=== PATIENT | male | born 1960 | race Caucasian/White ===

== ENCOUNTER 2023-10-15 11:14 | Inpatient (IN) | payer MEDICARE ==
[~2023-10-15] VITALS: Ht 182.9 cm; Wt 118.8 kg
[2023-10-15 12:20] LABS: ALANINE AMINOTRANSFERASE 8 U/L (12-78); ALBUMIN 2.5 g/dL (3.4-5.0); ALKALINE PHOSPHATASE 110 U/L (46-116); ASPARTATE AMINOTRANSFERASE < 5 U/L (15-37); BASOPHILS % (AUTO) 0.4 % (0.0-2.0); BILIRUBIN,DIRECT 0.2 mg/dL (0.0-0.2); BILIRUBIN,TOTAL 0.5 mg/dL (0.2-1.0); CARBON DIOXIDE 28 mmol/L (21-32); CHLORIDE 107 mmol/L (98-107); CREATININE 0.7 mg/dL (0.6-1.3); EOSINOPHILS # (AUTO) 0.4 K/uL (0.0-0.7); GLUCOSE 89 mg/dL (74-106); HEMATOCRIT 37 % (39-51); HEMOGLOBIN 12.5 g/dL (13.5-17.5); LYMPHOCYTES # (AUTO) 1.7 K/uL (0.8-4.8); LYMPHOCYTES % (AUTO) 18.3 % (20.0-44.0); MEAN CORPUSCULAR HEMOGLOBIN 30 PG (26.0-33.0); MEAN CORPUSCULAR HGB CONC 34 g/dl (31.0-36.0); MEAN CORPUSCULAR VOLUME 91 fL (80-96); MONOCYTES # (AUTO) 0.9 K/uL (0.1-1.30); MONOCYTES % (AUTO) 10.2 % (2.0-12.0); NEUTROPHILS # (AUTO) 6.1 K/uL (1.8-8.9); NEUTROPHILS % (AUTO) 67.1 % (43.0-81.0); PLATELET COUNT (AUTO) 518 K/uL (150-450); POTASSIUM 3.5 mmol/L (3.5-5.1); RED BLOOD CELL COUNT(AUTO) 4.13 MIL/uL (4.5-6.0); RED CELL DISTRIBUTION WIDTH 15.5 % (11.5-15.0); SALICYLATE 4.3 mg/dL (2.8-20.0); SODIUM SERUM 141 mmol/L (136-145); TOTAL PROTEIN, SERUM 6.9 g/dL (6.4-8.2); UREA NITROGEN, BLOOD 21 mg/dL (7-18)
[2023-10-15 12:25] LABS: ACETAMINOPHEN <10 ug/ml (10-30); ALCOHOL, BLOOD < 3 mg/dL (0-10)
[2023-10-15 13:40] LABS: APPEARANCE,URINE CLEAR (CLEAR); BILIRUBIN,URINE 1+ (NEGATIVE); BLOOD, URINE NEGATIVE Ery/uL (NEGATIVE); COLOR,URINE DARK YELLOW (YELLOW); KETONES,URINE NEGATIVE (NEGATIVE); LEUKOCYTE ESTERASE ,URINE NEGATIVE (NEGATIVE); NITRITE, URINE NEGATIVE (NEGATIVE); PROTEIN,URINE TRACE mg/dl (NEGATIVE); UGLUCOSE NEGATIVE (NEGATIVE)
[2023-10-15 13:46] LABS: AMPHETAMINE, URINE NEGATIVE (NEGATIVE); BARBITURATE, URINE NEGATIVE (NEGATIVE); CANNABINOID, URINE NEGATIVE (NEGATIVE); COCCAINE, URINE NEGATIVE (NEGATIVE); OPIATE, URINE NEGATIVE (NEGATIVE); PHENCYCLIDINE SCREEN,URINE NEGATIVE (NEGATIVE)
[2023-10-15 13:49] LABS: BENZODIAZEPINE, URINE POSITIVE (NEGATIVE)
[2023-10-15 13:51] LABS: CALCIUM OXALATE CRYSTALS,UR Many /HPF (None Seen)
[2023-10-15 13:52] LABS: BACTERIA,URINE Few /HPF (None Seen)
[2023-10-15 14:02] LABS: ADD URINE CULTURE NO; RBC,URINE 0-2 /HPF (0-2)
[2023-10-15 14:03] LABS: SQUAMOUS EPITHELIAL CELL,UR None Seen /HPF (None Seen)
[2023-10-15] MEDS ORDERED: ONDANSETRON HCL/PF 4 MG/2 ML VIAL IVP PRN (15:00)
[2023-10-15] MEDS ORDERED: MAGNESIUM HYDROXIDE 30 ML UDC PO PRN (15:00)
[2023-10-15] MEDS ORDERED: Z GUARD REMEDY 4 OZ OINT TP PRN (15:00)
[2023-10-15] MEDS ORDERED: ACETAMINOPHEN 325 MG TABLET PO PRN (15:00)
[2023-10-15] MEDS ORDERED: ZOLPIDEM TARTRATE 5 MG TABLET PO PRN (15:00)
[2023-10-15] MEDS ORDERED: HYDROCODONE/APAP 5/325MG TABLET PO PRN (15:00)
[2023-10-15] MEDS ORDERED: MAG HYDROX/AL HYDROX/SIMETH 30 ML UDC PO PRN (15:00)
[2023-10-15] MEDS: LORAZEPAM 0.5 MG TABLET PO PRN (21:30)
[2023-10-15] MEDS: IV NS 0.9% 1,000 ML IV PRN (21:31)
[2023-10-15 22:53] VITALS: BP 117/76; TEMP 97.8; O2SAT 98
[2023-10-16 06:58] LABS: BASOPHILS % (AUTO) 0.5 % (0.0-2.0); EOSINOPHILS # (AUTO) 0.4 K/uL (0.0-0.7); EOSINOPHILS % (AUTO) 5.7 % (0.0-6.0); HEMATOCRIT 38 % (39-51); HEMOGLOBIN 12.4 g/dL (13.5-17.5); LYMPHOCYTES # (AUTO) 1.8 K/uL (0.8-4.8); LYMPHOCYTES % (AUTO) 24.1 % (20.0-44.0); MEAN CORPUSCULAR HEMOGLOBIN 30 PG (26.0-33.0); MEAN CORPUSCULAR HGB CONC 33 g/dl (31.0-36.0); MEAN CORPUSCULAR VOLUME 92 fL (80-96); MONOCYTES # (AUTO) 0.7 K/uL (0.1-1.30); MONOCYTES % (AUTO) 10.1 % (2.0-12.0); NEUTROPHILS # (AUTO) 4.4 K/uL (1.8-8.9); NEUTROPHILS % (AUTO) 59.6 % (43.0-81.0); PLATELET COUNT (AUTO) 499 K/uL (150-450); RED CELL DISTRIBUTION WIDTH 15.5 % (11.5-15.0); WHITE BLOOD COUNT (AUTO) 7.3 K/uL (4.3-11.0)
[2023-10-16 07:22] LABS: CALCIUM, SERUM 8.4 mg/dL (8.5-10.1); CREATININE 0.6 mg/dL (0.6-1.3); MAGNESIUM 1.9 mg/dL (1.8-2.4); PHOSPHORUS 3.3 mg/dL (2.5-4.9); POTASSIUM 4.2 mmol/L (3.5-5.1)
[2023-10-16] MEDS: PANTOPRAZOLE 40 MG TABLET.DR PO SCH (07:58)
[2023-10-16 08:00] VITALS: BP 149/88; TEMP 98.2; O2SAT 98
[2023-10-16 16:02] VITALS: BP 131/90; TEMP 98.6; O2SAT 97
[2023-10-16] MEDS: risperiDONE 1 MG TABLET PO SCH (16:52)
[2023-10-16 20:00] VITALS: BP 111/72; TEMP 97.9; O2SAT 97
[2023-10-16] MEDS: DIVALPROEX SODIUM 250 MG TABLET.DR PO SCH (21:08)
== END 2023-10-17 15:47 | DRG 948 ==
LOC: ER 11:17 → MED 19:13 → EDBD 19:13 → MED 10-17 12:46
PROVIDERS: ADMIT Nurse Practitioner Acute Care; ATTEND Nurse Practitioner Acute Care
DX: R41.0 Disorientation, unspecified (principal); E44.0 Moderate protein-calorie malnutrition; Z59.00 Homelessness unspecified; F20.9 Schizophrenia, unspecified; F41.9 Anxiety disorder, unspecified; Z68.35 Body mass index [BMI] 35.0-35.9, adult; D64.9 Anemia, unspecified
CPT/HCPCS: 36415; 70450-TC; 80048-TC; 80076-TC; 80164-TC; 81001; 83735-TC; 84100-TC; 85025-TC; 87081-TC; A4223; G0378; G0480; J7030

== ENCOUNTER 2023-10-17 16:20 | Inpatient (IN) | payer MEDICARE ==
[~2023-10-17] VITALS: Ht 182.9 cm; Wt 114.8 kg
[2023-10-17 16:44] VITALS: BP 121/97; TEMP 98; O2SAT 100
[2023-10-17] MEDS ORDERED: ACETAMINOPHEN 325 MG TABLET PO PRN (17:00)
[2023-10-17] MEDS ORDERED: MAGNESIUM HYDROXIDE 30 ML UDC PO PRN (17:00)
[2023-10-17] MEDS ORDERED: MAG HYDROX/AL HYDROX/SIMETH 30 ML UDC PO PRN (17:00)
[2023-10-17] MEDS: BLOOD SUGAR DIAGNOSTIC 1 EACH STRIP IN ONE (17:33)
[2023-10-17 20:00] VITALS: BP 126/87; TEMP 98.5; O2SAT 98
[2023-10-18 07:59] LABS: ALBUMIN 2.1 g/dL (3.4-5.0); BILIRUBIN,TOTAL 0.3 mg/dL (0.2-1.0); CALCIUM, SERUM 8.7 mg/dL (8.5-10.1); CREATININE 0.5 mg/dL (0.6-1.3); POTASSIUM 4.3 mmol/L (3.5-5.1); TOTAL PROTEIN, SERUM 6.3 g/dL (6.4-8.2)
[2023-10-18 08:00] VITALS: BP 126/90; TEMP 97.7; O2SAT 98
[2023-10-18 08:35] LABS: CHOLESTEROL 114 mg/dL (<200); HDL CHOLESTEROL 40 mg/dL (40-60); LDL 65 mg/dL (0-99); TRIGLYCERIDES 28 mg/dL (30-150)
[2023-10-18] MEDS: risperiDONE 1 MG TABLET PO SCH (09:24)
[2023-10-18] MEDS ORDERED: TEMAZEPAM 7.5 MG CAPSULE PO PRN (10:30)
[2023-10-18 16:00] VITALS: BP 101/80; TEMP 98; O2SAT 97
[2023-10-18 20:00] VITALS: BP 123/83; TEMP 98.4; O2SAT 100
[2023-10-19 08:00] VITALS: BP 134/83; TEMP 98.1; O2SAT 96
[2023-10-19] MEDS: clonazePAM 0.5 MG TABLET PO PRN (11:48)
[2023-10-19 16:00] VITALS: BP 115/72; TEMP 98.1; O2SAT 98
[2023-10-19 20:00] VITALS: BP 110/83; TEMP 98; O2SAT 97
[2023-10-20 08:00] VITALS: BP 106/84; TEMP 97.8; O2SAT 97
[2023-10-20 16:00] VITALS: BP 123/74; TEMP 98.2; O2SAT 98
[2023-10-20] MEDS: risperiDONE 1 MG TABLET PO SCH (17:13)
[2023-10-20 20:25] VITALS: BP 114/86; TEMP 98.1; O2SAT 98
[2023-10-21 08:00] VITALS: BP 127/93; TEMP 98; O2SAT 100
[2023-10-21 16:03] VITALS: BP 112/69; TEMP 98.4; O2SAT 98
[2023-10-21 20:46] VITALS: BP 112/90; TEMP 98.3; O2SAT 97
[2023-10-22 08:00] VITALS: BP 121/76; TEMP 97.9; O2SAT 98
[2023-10-22 16:00] VITALS: BP 115/84; TEMP 97.9; O2SAT 97
[2023-10-22 21:01] VITALS: BP 112/70; TEMP 97.5; O2SAT 100
[2023-10-23 08:00] VITALS: BP 136/87; TEMP 97.7; O2SAT 98
[2023-10-23 16:16] VITALS: BP 120/67; TEMP 98.2; O2SAT 97
[2023-10-23 20:00] VITALS: BP 140/99; TEMP 97.7; O2SAT 94
[2023-10-23 20:12] VITALS: BP 140/99; TEMP 97.7; O2SAT 94
[2023-10-24 08:00] VITALS: BP 111/85; TEMP 97.8; O2SAT 99
[2023-10-24 16:12] VITALS: BP 119/87; TEMP 98.1; O2SAT 98
[2023-10-24 20:00] VITALS: BP 129/89; TEMP 98.1; O2SAT 99
[2023-10-25 08:00] VITALS: BP 133/94; TEMP 97.6; O2SAT 99
[2023-10-25 16:00] VITALS: BP 108/92; TEMP 98.1; O2SAT 99
[2023-10-25 20:00] VITALS: BP 125/75; TEMP 97.9; O2SAT 100
[2023-10-26 08:00] VITALS: BP 106/70; TEMP 98.6; O2SAT 100
[2023-10-26] MEDS: GLUCERNA SHAKE 237 ML CAN PO SCH (08:27)
== END 2023-10-26 13:20 | DRG 885 ==
LOC: GPS 16:20
PROVIDERS: ADMIT Nurse Practitioner Psychiatric/Mental Health; ATTEND Nurse Practitioner Acute Care
DX: F20.0 Paranoid schizophrenia (principal); F05 Delirium due to known physiological condition; E44.0 Moderate protein-calorie malnutrition; F29 Unspecified psychosis not due to a substance or known physiological condition; D64.9 Anemia, unspecified
CPT/HCPCS: 36415; 80048-TC; 80053-TC; 80061-TC; 82962-TC; 87081-TC